=== PATIENT | female | born 1960 | race Caucasian/White ===

== ENCOUNTER 2023-08-16 12:46 | Inpatient (IN) | payer BC, SELFPAY ==
--- NOTE | ~2023-08-16 | XR_ITS ---
XR hip LT 2V w AP pelvis DATE: 08/16/2023 14:41 INDICATION: Fall. Left hip pain TECHNIQUE: AP pelvis. AP and crosstable lateral views of left hip. COMPARISON: None FINDINGS: There is a recent left subcapital femoral neck fracture with minimal displacement. Normal alignment at the pubic symphysis and sacroiliac joints. No pelvic fracture or bone destruction is detected. Normal alignment at both hips. IMPRESSION: Left subcapital femoral neck fracture Reviewed, dictated and finalized at location L.
--- NOTE | ~2023-08-16 | XR_ITS ---
EXAMINATION: XR surgery orthopedic DATE: 08/17/2023 14:26 INDICATION: Left hip pinning for femoral neck fracture TECHNIQUE: 2 fluoroscopic images of the left hip were obtained during procedure performed by Dr. Sosa . Radiologist was not present for the imaging or procedure. The amount of fluoroscopy time used durin g this procedure was 1.0 minutes. COMPARISON: None. FINDINGS: Internal fixation with 3 cannulated lag screws of the previously noted subcapital fracture the proxim al left femur. Fracture remains nondisplaced with lateral impaction and mild valgus angulation. IMPRESSION: 1. Lag screw fixation of an unchanged laterally impacted subcapital fracture of the proximal left fem ur. Reviewed, dictated and finalized at location A. IMPRESSION: 1. Lag screw fixation of an unchanged laterally impacted subcapital fracture of the proximal left femur.
--- NOTE | ~2023-08-16 | XR_ITS ---
XR chest 1V DATE: 08/16/2023 14:42 INDICATION: Left subcapital femoral neck fracture TECHNIQUE: Supine AP chest COMPARISON: None FINDINGS: Normal heart size. No hilar or mediastinal enlargement. No pulmonary infiltrate or consolid ation, pleural effusion or pulmonary vascular congestion or pneumothorax is detected. IMPRESSION: No active cardiopulmonary disease Reviewed, dictated and finalized at location L.
[2023-08-16 12:49] VITALS: BP 141/79; PULSE 81; RESP 18; TEMP 36.8; O2SAT 100
--- NOTE | 2023-08-16 15:15 | ED.LOWEXIN ---
HPI - Extremity Injury (Lower) General Chief Complaint: Extremity Injury, Lower Stated Complaint: LEFT hip pain from ground level fall Time Seen by Provider: 08/16/23 14:20 History of Present Illness HPI Narrative: Patient is a 63-year-old female with a history of hypothyroidism presenting with left hip pain. Patient states that she was on a walk when she tripped on some walnuts that were on the ground she fell on her left hip. States that she had severe pain with ambulation. She states that she struck the side of her face on something but did not lose consciousness. No headache or neck or back pain. States that she has left shoulder pain that was present prior to the fall. Denies further complaints or injuries. Related Data Home Medications Medication Instructions Recorded Confirmed cetirizine 10 mg capsule (Zyrtec) 10 mg PO DAILY PRN Allergies 01/27/23 08/16/23 omega 3-ppd-abr-fish oil 60 mg-90 1 cap PO DAILY 08/11/23 08/16/23 mg-500 mg capsule (Fish Oil) Pepcid 10 mg PO DAILY PRN Indigestion 08/16/23 08/16/23 Allergies Allergy/AdvReac Type Severity Reaction Status Date / Time No Known Allergies Allergy Verified 08/16/23 14:09 Review of Systems Review of Systems: All systems reviewed & are unremarkable except as noted in HPI and below PMFSH Past Medical History Medical History Allergic rhinitis Dysthymia Elevated cholesterol Left chronic serous otitis media Mammogram declined (09/08/18) Nevus of face Vitamin D deficiency Surgical History Surgical History No significant past surgical history Family History Family History Father Family history of coronary artery disease Family history of alcoholism Hypertension Grandparent Breast cancer Mother Age older than 85 years Chronic kidney disease Other Alcoholism Family history of malignant neoplasm of breast in first degree relative Malignant neoplasm of prostate Social History Social History Social History: The patient lives in her own home. Her 3 adult children still live with her. Her 90-year-old mother is also living with her. She is employed as a mortgage processing clerk. She does not have any significant alcohol use history. She is a lifelong nonsmoker. She does not use illicit substances. She exercises quite frequently. She walks at least 2 miles a day. She used to run until she started having left hip discomfort with running. Code status: Full code Surrogate decision maker: Vanessa Coulter (daughter) Smoking status: Never smoker Second hand tobacco smoke exposure: No Alcohol intake: never Substance use: never Substance use type: does not use Lack of Transportation: No Lack of Food: Never True Current Housing: I Have Housing Concerned About Future Housing: No Difficulty Paying Gas/Electric Bills: No Difficulty Paying for Meds: No Currently Unemployed: No Education: Bachelor's Degree Difficulty w/ Childcare or Family Care: No Living arrangements: with family Gender identity (if verbalized by the patient): Female Sexual Orientation (if Verbalized by the Patient): Straight or Heterosexual Spiritual care concerns: No Agree to blood products: Yes Exam Narrative: GENERAL: Well-appearing, no acute distress, pleasant and cooperative HEAD: Normocephalic, superficial skin tear left upper nasal bridge, 4 mm laceration just superior to left eyebrow EYES: PERRLA and EOMI. ENT: Grossly unremarkable NECK: Supple. CHEST: Clear to auscultation. No respiratory distress. HEART: Regular rate and rhythm. Normal peripheral pulses. ABDOMEN: Soft, nontender, nondistended EXTREMITIES: Normal range of motion limited in right hip secondary to pain. No edema. Mild tenderness of left hip with palp
[2023-08-16] MEDS: SODIUM CHLORIDE 0.9% IV 1,000 ML 999 ML IV CONT (15:59)
[2023-08-16] MEDS: KETOROLAC 30 MG/ML VIAL (*BKC) IV PUSH (16:00)
[2023-08-16 16:13] LABS: Basophils Absolute Auto 0.1 K/mm3 (0.0-0.1); Basophils Percent Auto 0.4 % (0.2-1.2); Eosinophils Percent Auto 0.2 % (0-4.4); Hematocrit 40.1 % (37.0-47.0); Hemoglobin 13.3 g/dL (12.0-15.0); Immature Granulocyte Absolute 0.08 K/mm3 (0.00-0.031); Immature Granulocyte Percent A 0.5 % (0-0.5); Lymphocytes Absolute Auto 0.95 K/mm3 (0.9-3.2); Lymphocytes Percent Auto 6.1 % (18.3-44.2); Mean Corpuscular HGB Conc 33.2 g/dl (32-36); Mean Corpuscular Hemoglobin 30.2 pg (26-34); Mean Corpuscular Volume 90.9 fl (80-100); Mean Platelet Volume 8.8 fl (7.4-10.4); Monocytes Absolute Auto 0.6 K/mm3 (0.1-0.6); Monocytes Percent Auto 3.9 % (2.6-8.5); Neutrophils Absolute Auto 13.9 K/mm3 (1.3-6.7); Neutrophils Percent Auto 88.9 % (45.5-73.1); Platelet Count Result 290 k/mm3 (150-375); Red Blood Count 4.41 M/mm3 (4.2-5.4); Red Cell Distribution Width 13.1 % (11.5-14.5); White Blood Count 15.6 K/mm3 (4.5-10.0)
[2023-08-16 16:24] LABS: Anion Gap 8 mmol/L (8-16); Blood Urea Nitrogen 9 mg/dL (7-17); Calcium 9.1 mg/dL (8.4-10.2); Carbon Dioxide 27 mmol/L (22-30); Chloride 101 mmol/L (98-107); Estimated CRCL calculation 57 ml/min; Estimated Glomerular Filt Rate > 60; Glucose 103 mg/dL (65-110); Partial Thromboplastin Time 26.7 SECONDS (22.3-36.8); Potassium 3.6 mmol/L (3.4-5.0); Prothrombin Time 13.8 Seconds (11.1-14.7); Sodium 136 mmol/L (137-145)
[2023-08-16 16:38] VITALS: BP 137/82; PULSE 84; RESP 18; O2SAT 100
[2023-08-16 17:36] VITALS: BP 125/69; PULSE 77; RESP 18; TEMP 36.6; O2SAT 99
--- NOTE | 2023-08-16 19:20 | ADMGEN ---
This patient, Nena Coulter, was admitted to [facility] Surg Room 305-02. Patient/family oriented to hospital policies and general routines including ID bracelet, bed and alarms, visiting hours, pain management, procedures, bathroom and other care routines, personal items, smoking policy, room service/diet, and visiting hours. Information on how to activate the Rapid Response Team has been discussed. Patient/Family are encouraged to report perceived risks to care and to ask questions if they do not understand what they are told or what they should do.
[2023-08-16 22:00] VITALS: BP 115/69; PULSE 77; RESP 12; TEMP 36.9; O2SAT 99
[2023-08-17] VITALS (12 sets, daily range): BP systolic 103–155; BP diastolic 60–94; PULSE 72–102; RESP 14–20; TEMP 36.6–37.8; O2SAT 95–100
--- NOTE | 2023-08-17 01:44 | PM.IMHP ---
H&P: HPI History of Present Illness Date/Time: 08/17/23 03:30 Chief Complaint: Left hip pain Narrative: 63-year-old female with past medical history of hypothyroidism, vitamin-D deficiency and heartburn who presented to the ER after she stepped on a [place] and fell resulting in left hip pain. The patient reports that she usually walks about 2 miles a day. During her lunch break from work she decided to go take her usual walk. The area she was walking in had walnut trees that dropped a lot of hauls. She accidentally stepped on 1 and her legs went out from under her. She fell she actually states that she knocked her glasses to the side this caused a bruise on her left gnosticist and a small laceration to the bridge of her nose. Initially she was more concerned about the laceration to her nose because it was bleeding significantly. But when she tried to get up she could not stand due to left hip pain. The pain was severe when she tried to stand. Currently she is not having pain in LEs she moves. She has never had a fracture or surgery in her life. She is quite anxious as this is her 1st hospitalization besides childbirth. She reports that she is really active and does not have any shortness of breath or issues with chest pain or palpitations. She has not had any lower extremity swelling orthopnea or paroxysmal nocturnal dyspnea. Review of Systems Review of Systems: 12 systems were reviewed with pertinent positives and negatives per HPI. Except as documented in the HPI, all other systems were reviewed and are negative. [facility] Past Medical History Medical History (Updated 08/17/23 @ 01:56 by Marichuy Schrader DO) Allergic rhinitis Dysthymia Elevated cholesterol Left chronic serous otitis media Mammogram declined (09/08/18) Nevus of face Vitamin D deficiency Surgical History Surgical History (Updated 08/17/23 @ 01:50 by Marichuy Schrader DO) No significant past surgical history Family History Family History Father Family history of coronary artery disease Family history of alcoholism Hypertension Grandparent Breast cancer Other Alcoholism Family history of malignant neoplasm of breast in first degree relative Malignant neoplasm of prostate Social History Social History Social History: Code status: Full code Surrogate decision maker: Vanessa Coulter (daughter) Smoking status: Never smoker Second hand tobacco smoke exposure: No Alcohol intake: never Substance use: never Substance use type: does not use Lack of Transportation: No Lack of Food: Never True Current Housing: I Have Housing Concerned About Future Housing: No Difficulty Paying Gas/Electric Bills: No Difficulty Paying for Meds: No Currently Unemployed: No Education: Bachelor's Degree Difficulty w/ Childcare or Family Care: No Living arrangements: with family Gender identity (if verbalized by the patient): Female Sexual Orientation (if Verbalized by the Patient): Straight or Heterosexual Spiritual care concerns: No Agree to blood products: Yes Meds Home Medications and Allergies Home Medications Medication Instructions Recorded Confirmed Type cholecalciferol (vitamin D3) 25 25 mcg PO DAILY #90 caps 08/02/22 08/16/23 Rx mcg (1,000 unit) capsule levothyroxine 75 mcg tablet 75 mcg PO DAILY #90 tabs 10/15/22 08/16/23 Rx cetirizine 10 mg capsule (Zyrtec) 10 mg PO DAILY PRN Allergies 01/27/23 08/16/23 History omega 7-jhh-sgi-fish oil 60 mg-90 1 cap PO DAILY 08/11/23 08/16/23 History mg-500 mg capsule (Fish Oil) Pepcid 10 mg PO DAILY PRN Indigestion 08/16/23 08/16/23 History Allergies Allergy/AdvReac Type Severity Reaction Status Date / Time No Known Allergies Allergy Verified 08/16/23 14:09 Vital Signs Vital Signs - 24 hr 08/16/23 12:49 08/16/23 16:38
--- NOTE | 2023-08-17 01:47 | ECG_ITS ---
Measurements Intervals [place] Rate: 64 P: 77 AK: 174 QRS: 69 QRSD: 102 T: 66 QT: 380 QTc: 393 Interpretive Statements SINUS RHYTHM NO PREVIOUS ECG AVAILABLE FOR COMPARISON Electronically Signed On 08-17-2023 15:43:36 CDT by Francesca Lindquist M.D.
[2023-08-17] MEDS: MORPHINE SULFATE (*CRX) 2 MG/ML INJ IV PUSH (04:19)
[2023-08-17] MEDS: LEVOTHYROXINE SODIUM 75 MCG TABLET PO (06:18)
--- NOTE | 2023-08-17 08:05 | PM.IMPN ---
Progress Note: A&P Assessment and Plan (1) Fracture of femoral neck, left, closed: Qualifiers: Encounter type: initial encounter Qualified Code(s): S72.002A - Fracture of unspecified part of neck of left femur, initial encounter for closed fracture Code(s): S72.002A - Fracture of unspecified part of neck of left femur, initial encounter for closed fracture Status: Acute Assessment and Plan: S/p fall from tripping on a walnut CT shows left femoral neck fracture Ortho consulted Bed rest NPO Rudd placed for immobility and accurate I&O's. morphine 2 mg IVP 2 4 hours for pain Foot pump SCD's (2) Hypothyroidism: Qualifiers: Hypothyroidism type: unspecified Qualified Code(s): E03.9 - Hypothyroidism, unspecified Code(s): E03.9 - Hypothyroidism, unspecified Status: Acute Assessment and Plan: At home on levothyroxine 75 mcg daily check am TSH (3) Closed head injury: Qualifiers: Encounter type: subsequent encounter Qualified Code(s): S09.90XD - Unspecified injury of head, subsequent encounter Code(s): S09.90XA - Unspecified injury of head, initial encounter Status: Acute Assessment and Plan: Left yazidism laceration and brow bruise s/p fall with adequate hemostasis. monitor. patient is not on blood thinners at home. Plan Feeding:NPO until after surgery Analgesia:morhpine Thromboembolic prophylaxis: foot pumps and then anticoagulation per ortho Ulcer prophylaxis: Pepcid prn Glycemic control: N/A Bowel regimen: miralax starting 08/18 Lines: PIV Antibiotics: None at this time Subjective Date/time seen: 08/17/23 08:05 Interval history: HPI obtained from chart, 63-year-old female with past medical history of hypothyroidism, vitamin-D deficiency and heartburn who presented to the ER after she stepped on a [place] and fell resulting in left hip pain.? The patient reports that she usually walks about 2 miles a day.? During her lunch break from work she decided to go take her usual walk.? The area she was walking in had walnut trees that dropped a lot of hauls.? She accidentally stepped on 1 and her legs went out from under her.? She fell she actually states that she knocked her glasses to the side this caused a bruise on her left yazidism and a small laceration to the bridge of her nose.? Initially she was more concerned about the laceration to her nose because it was bleeding significantly.? But when she tried to get up she could not stand due to left hip pain.? The pain was severe when she tried to stand.? Currently she is not having pain in LEs she moves.? She has never had a fracture or surgery in her life.? She is quite anxious as this is her 1st hospitalization besides childbirth.? She reports that she is really active and does not have any shortness of breath or issues with chest pain or palpitations.? She has not had any lower extremity swelling orthopnea or paroxysmal nocturnal dyspnea.? Interval history- 08/17-very pleasant 63-year-old female who is awaiting surgery with Orthopedics today. She has no complaints at this time other than some dull achy pain in her hip. Overall she is just frustrated that she fell and nausea fracture. Discussed likely postoperative course and answered questions as needed. Review of Systems Review of Systems: All systems reviewed & are unremarkable except as noted in HPI and below Exam Narrative: General: well appearing, well developed, well nourished, appears stated age. HEENT: normocephalic, atraumatic. Mucous membranes moist. EOMI, PERRLA, bilateral sclera anicteric, no conjunctival injection. Neck supple without JVD, lymphadenopathy, or bruit. Respiratory: clear to auscultation bilaterally. No rales/rhonic/wheezes. Cardiovascular: Regular rate and rhythm, normal S1-S2 upon auscultation. No murmurs, rubs, or clicks. PMI is nondisplaced, capillary re-fill less than 3 second. Abd
[2023-08-17 08:29] LABS: Basophils Percent Auto 0.5 % (0.2-1.2); Eosinophils Absolute Auto 0.1 K/mm3 (0-0.3); Eosinophils Percent Auto 0.8 % (0-4.4); Hematocrit 38.8 % (37.0-47.0); Hemoglobin 12.4 g/dL (12.0-15.0); Immature Granulocyte Absolute 0.02 K/mm3 (0.00-0.031); Immature Granulocyte Percent A 0.3 % (0-0.5); Lymphocytes Absolute Auto 1.05 K/mm3 (0.9-3.2); Lymphocytes Percent Auto 13.3 % (18.3-44.2); Mean Corpuscular Hemoglobin 29.9 pg (26-34); Mean Corpuscular Volume 93.5 fl (80-100); Monocytes Absolute Auto 0.6 K/mm3 (0.1-0.6); Monocytes Percent Auto 8.1 % (2.6-8.5); Neutrophils Absolute Auto 6.1 K/mm3 (1.3-6.7); Platelet Count Result 252 k/mm3 (150-375); Red Blood Count 4.15 M/mm3 (4.2-5.4); Red Cell Distribution Width 13.4 % (11.5-14.5); White Blood Count 7.9 K/mm3 (4.5-10.0)
[2023-08-17 08:39] LABS: Alanine Aminotransferase 17 U/L (6-35); Albumin Level 3.9 g/dL (3.5-5.1); Alkaline Phosphatase 41 U/L (38-126); Anion Gap 3 mmol/L (8-16); Aspartate Amino Transferase 25 U/L (14-36); Bilirubin,Total 1.2 mg/dL (0.2-1.3); Blood Urea Nitrogen 7 mg/dL (7-17); Calcium 8.4 mg/dL (8.4-10.2); Carbon Dioxide 26 mmol/L (22-30); Chloride 107 mmol/L (98-107); Estimated CRCL calculation 74 ml/min; Estimated Glomerular Filt Rate > 60; Glucose 95 mg/dL (65-110); Potassium 3.9 mmol/L (3.4-5.0); Sodium 136 mmol/L (137-145)
[2023-08-17 08:53] LABS: Prothrombin Time 13.8 Seconds (11.1-14.7)
[2023-08-17 08:54] LABS: Partial Thromboplastin Time 27.8 SECONDS (22.3-36.8)
--- NOTE | 2023-08-17 09:54 | PM.CNOR ---
Assessment and Plan Assessment and plan (1) Fracture of femoral neck, left, closed: Qualifiers: Encounter type: initial encounter Qualified Code(s): S72.002A - Fracture of unspecified part of neck of left femur, initial encounter for closed fracture Code(s): S72.002A - Fracture of unspecified part of neck of left femur, initial encounter for closed fracture Status: Acute Plan 63 year old female with a left subcapital femoral neck fracture after a fall yesterday while she was walking. Plan will be for hip pinning with Dr. Sosa later this afternoon. Nature of the procedure along with risks and complications were discussed in detail with her. She would like to proceed. Post operative protected weight bearing and wound care were also reviewed. She had no further questions. She has been NPO since midnight. History of Present Illness HPI Consult date: 08/17/23 Chief complaint: Left Hip Fx Narrative: 63 year old female admitted for a left subcapital femoral neck fracture after a fall while walking yesterday. She states she tripped and fell on her left side after tripping on some walnuts on the ground. Xrays taken in the ER showed the left subcapital femoral neck fracture. She has no surgical history. No previous reactions to pain medications. She currently lives with her daughter at home and would like go back home at the time of discharge. Review of Systems Constitutional: Constitutional: Reports as per HPI Cardiovascular: Cardiovascular: Reports as per HPI Respiratory: Respiratory: Reports as per HPI Gastrointestinal: Gastrointestinal: Reports as per HPI Musculoskeletal: Musculoskeletal: Reports no additional musculoskeletal complaints and Reports as per HPI Neurologic: Reports system reviewed and no additional complaints, except as documented and Reports as per HPI Psychiatric: Psychiatric: Reports as per HPI Hematologic/Lymphatic: Hematologic/Lymphatic: Reports as per HPI Allergic/Immunologic: Allergic/Immunologic: Reports as per HPI [facility] Past Medical History Medical History Allergic rhinitis Dysthymia Elevated cholesterol Left chronic serous otitis media Mammogram declined (09/08/18) Nevus of face Vitamin D deficiency Surgical History Surgical History No significant past surgical history Family History Family History Father Family history of coronary artery disease Family history of alcoholism Hypertension Grandparent Breast cancer Mother Age older than 85 years Chronic kidney disease Other Alcoholism Family history of malignant neoplasm of breast in first degree relative Malignant neoplasm of prostate Social History Social History Social History: The patient lives in her own home. Her 3 adult children still live with her. Her 90-year-old mother is also living with her. She is employed as a residential mortgage underwriter. She does not have any significant alcohol use history. She is a lifelong nonsmoker. She does not use illicit substances. She exercises quite frequently. She walks at least 2 miles a day. She used to run until she started having left hip discomfort with running. Code status: Full code Surrogate decision maker: Vanessa Coulter (daughter) Smoking status: Never smoker Second hand tobacco smoke exposure: No Alcohol intake: never Substance use: never Substance use type: does not use Lack of Transportation: No Lack of Food: Never True Current Housing: I Have Housing Concerned About Future Housing: No Difficulty Paying Gas/Electric Bills: No Difficulty Paying for Meds: No Currently Unemployed: No Education: Bachelor's Degree Difficulty w/ Childcare or Family Care: No Living arrangements: with family Gender i
[2023-08-17] MEDS: LACTATED RINGERS 1,000 ML 30 ML IV CONT ×2 (12:40→15:04)
--- NOTE | 2023-08-17 12:47 | WPDANESEPPF ---
Anes - Initial Pre Proc Eval Procedure: Operation Date: 08/17/23 13:30 Proposed Procedures p Left Hip Pinning - Donnie Sosa MD Date/Time: 08/17/23 12:47 Surgeon: Magnolia Palma MD Pre Op Diagnosis: Left Hip Fx Patient Data Age: 63 Gender: F Height: 1.68 m Weight: 60.6 kg Last Vital Signs Temp 36.7 C 08/17/23 06:00 Pulse 72 08/17/23 06:00 Resp 14 08/17/23 06:00 BP 136/76 08/17/23 06:00 Pulse Ox 99 08/17/23 06:00 O2 Del Method Room Air 08/17/23 08:00 Allergies Allergy/AdvReac Type Severity Reaction Status Date / Time No Known Allergies Allergy Verified 08/16/23 14:09 Home Medications Medication Instructions Recorded Confirmed Type cholecalciferol (vitamin D3) 25 25 mcg PO DAILY #90 caps 08/02/22 08/16/23 Rx mcg (1,000 unit) capsule levothyroxine 75 mcg tablet 75 mcg PO DAILY #90 tabs 10/15/22 08/16/23 Rx cetirizine 10 mg capsule (Zyrtec) 10 mg PO DAILY PRN Allergies 01/27/23 08/16/23 History omega 9-vxj-kcp-fish oil 60 mg-90 1 cap PO DAILY 08/11/23 08/16/23 History mg-500 mg capsule (Fish Oil) Pepcid 10 mg PO DAILY PRN Indigestion 08/16/23 08/16/23 History Laboratory Tests 08/16/23 08/17/23 15:58 08:22 WBC 15.6 H K/mm3 7.9 K/mm3 (4.5-10.0) (4.5-10.0) RBC 4.41 M/mm3 4.15 L M/mm3 (4.2-5.4) (4.2-5.4) Hgb 13.3 g/dL 12.4 g/dL (12.0-15.0) (12.0-15.0) Hct 40.1 % 38.8 % (37.0-47.0) (37.0-47.0) MCV 90.9 fl 93.5 fl (80-100) (80-100) MCH 30.2 pg 29.9 pg (26-34) (26-34) MCHC 33.2 g/dl 32.0 g/dl (32-36) (32-36) RDW 13.1 % 13.4 % (11.5-14.5) (11.5-14.5) Plt Count 290 k/mm3 252 k/mm3 (150-375) (150-375) MPV 8.8 fl 9.0 fl (7.4-10.4) (7.4-10.4) Immature Gran % (Auto) 0.5 % 0.3 % (0-0.5) (0-0.5) Neut % (Auto) 88.9 H % 77.0 H % (45.5-73.1) (45.5-73.1) Lymph % (Auto) 6.1 L % 13.3 L % (18.3-44.2) (18.3-44.2) [place] % (Auto) 3.9 % 8.1 % (2.6-8.5) (2.6-8.5) Eos % (Auto) 0.2 % 0.8 % (0-4.4) (0-4.4) Baso % (Auto) 0.4 % 0.5 % (0.2-1.2) (0.2-1.2) Lymph # (Auto) 0.95 K/mm3 1.05 K/mm3 (0.9-3.2) (0.9-3.2) [place] # (Auto) 0.6 K/mm3 0.6 K/mm3 (0.1-0.6) (0.1-0.6) Eos # (Auto) 0.0 K/mm3 0.1 K/mm3 (0-0.3) (0-0.3) Baso # (Auto) 0.1 K/mm3 0.0 K/mm3 (0.0-0.1) (0.0-0.1) Abs Immat Gran (auto) 0.08 H K/mm3 0.02 K/mm3 (0.00-0.031) (0.00-0.031) Absolute Neuts (auto) 13.9 H K/mm3 6.1 K/mm3 (1.3-6.7) (1.3-6.7) Absolute Nucleated RBC 0.0 K/mm3 0.0 K/mm3 (0.0-0.012) (0.0-0.012) Nucleated RBC % 0.0 % 0.0 % (0.0-0.2) (0.0-0.2) PT 13.8 Seconds 13.8 Seconds (11.1-14.7) (11.1-14.7) INR 1.0 1.0 APTT 26.7 SECONDS 27.8 SECONDS (22.3-36.8) (22.3-36.8) Sodium 136 L mmol/L 136 L mmol/L (137-145) (137-145) Potassium 3.6 mmol/L 3.9 mmol/L (3.4-5.0) (3.4-5.0) Chloride 101 mmol/L 107 mmol/L (98-107) (98-107) Carbon Dioxide 27 mmol/L 26 mmol/L (22-30) (22-30) Anion Gap 8 mmol/L 3 L mmol/L (8-16) (8-16) BUN 9 mg/dL 7 mg/dL (7-17) (7-17) Creatinine 0.80 mg/dL 0.60 L mg/dL (0.7-1.0) (0.7-1.0) Estim Creat Clear Calc 57 ml/min 74 ml/min Estimated GFR > 60 > 60 (59 - ) (59 - ) Glucose 103 mg/dL 95 mg/dL (65-110) (65-110) Calcium 9.1 mg/dL 8.4 mg/dL (8.4-10.2) (8.4-10.2) Total Bilirubin 1.2 mg/dL (0.2-1.3) AST 25 U/L (14-36) ALT 17 U/L (6-35) Alkaline Phosphatase 41 U/L (38-126) Total Protein 7.0 g/dL (6.3-8.2) Albumin 3.9 g/dL (3.5-5.1) Patient hx anesthesia problems: none Family hx anesthesia problems: none Results Review: All pre-operative results and documents have been reviewed as part of the pre-operative evaluation. PMFSH Past Medical History Medical History Allergic rhinitis D
--- NOTE | 2023-08-17 12:50 | WPDHPUPDATE1 ---
History and Physical Update Update Date/Time: 08/17/23 12:50 History and Physical has been reviewed, including an updated exam of the patient. There are NO changes in the patient's condition. Risks, benefits, and alternatives have been discussed and questions answered. Patient agrees to proceed with procedure.
[2023-08-17] MEDS: ceFAZolin 2 GM/D5W 50 ML 2 GM/50 ML BAG IVPB ×2 (13:21→22:13)
[2023-08-17] MEDS: BUPIVACAINE/EPINEPHRINE 0.5% 50 ML VIAL 30 ML INFILTRATE (13:59)
--- NOTE | 2023-08-17 14:51 | W.PM.PROC2 ---
Procedure Note - Detailed Date of Procedure 08/17/23 Pre-op Diagnosis Left subcapital femoral neck fracture Post-op Diagnosis Same Procedure Performed Pinning in-situ left femoral neck fracture Surgeon Donnie Sosa MD [employer] [place] Anesthesia General Description of Procedure The patient was identified and proper site identified. She was taken to the operating room and after general anesthetic induction intubation, transferred over to the fracture table positioning her supine take care to pad her torso and extremities. The position of the fracture was assessed fluoroscopically and noted to be in unchanged impacted position. The left hip and thigh was prepped and draped in the usual sterile fashion. Several cc of 0.5% Marcaine and epinephrine solution was injected the subcutaneous tissue in the area of the incision. Longitudinal incision was made over the lateral aspect of the proximal femur. Subcutaneous tissue sharply dissected down to the ID band which was divided line with the incision. Through this incision three guide pins were placed under fluoroscopic visualization. Over the guide pins three parallel 7.0 cannulated screws were passed across the fracture site in the guide pins removed. This was assessed fluoroscopically in the AP and lateral views and noted to be satisfactory. Wound was irrigated with sterile saline. ID band was reapproximated with 0 Vicryl as was the deeper layers of the subQ. Skin closed with three 0 V lock and sobia. Sterile dressing was applied. She tolerated the procedure well. She was awakened, extubated, transferred to a bed and taken to recovery area in stable condition. There were no known intraoperative complications. Estimated blood loss negative. She received perioperative antibiotics. Estimated Blood Loss 20 Drains No Packing No Pathology None sent Complications No immediate complications Condition Stable Disposition PACU [facility] Billing Surgery - Charge Forward: Surgery Billing ([id number])
[2023-08-17] MEDS: SODIUM CHLORIDE 0.9% IV 1,000 ML 125 ML IV CONT (16:00)
[2023-08-17] MEDS: HYDROcodone/acetaminophen (*CRX) 7.5-325 MG TABLET 2 TAB PO (16:50)
[2023-08-17] MEDS: SENNA/DOCUSATE SODIUM TABLET 2 TAB PO (16:50)
[2023-08-17] MEDS: ASPIRIN 325 MG ENTERIC TABLET PO (20:45)
[2023-08-17] MEDS: FAMOTIDINE 20 MG TABLET PO (20:45)
[2023-08-17] MEDS: HYDROcodone/acetaminophen (*CRX) 5-325 MG TABLET 1 TAB PO (22:46)
[2023-08-18 01:08] VITALS: BP 115/66; PULSE 62; RESP 20; TEMP 37; O2SAT 99
[2023-08-18 05:08] VITALS: BP 115/66; PULSE 62; RESP 20; TEMP 37; O2SAT 99
[2023-08-18] MEDS: ceFAZolin 2 GM/D5W 50 ML 2 GM/50 ML BAG IVPB ×2 (05:31→14:09)
[2023-08-18] MEDS: HYDROcodone/acetaminophen (*CRX) 5-325 MG TABLET 1 TAB PO ×2 (05:33→20:17)
[2023-08-18] MEDS: LEVOTHYROXINE SODIUM 75 MCG TABLET PO (05:33)
[2023-08-18] MEDS: LORATADINE 10 MG TABLET PO (06:13)
[2023-08-18 06:31] LABS: Basophils Percent Auto 0.4 % (0.2-1.2); Hematocrit 37.2 % (37.0-47.0); Hemoglobin 11.8 g/dL (12.0-15.0); Immature Granulocyte Absolute 0.04 K/mm3 (0.00-0.031); Immature Granulocyte Percent A 0.4 % (0-0.5); Lymphocytes Absolute Auto 0.78 K/mm3 (0.9-3.2); Lymphocytes Percent Auto 7.6 % (18.3-44.2); Mean Corpuscular HGB Conc 31.7 g/dl (32-36); Mean Corpuscular Hemoglobin 29.9 pg (26-34); Mean Corpuscular Volume 94.4 fl (80-100); Mean Platelet Volume 9.4 fl (7.4-10.4); Monocytes Absolute Auto 0.7 K/mm3 (0.1-0.6); Monocytes Percent Auto 6.7 % (2.6-8.5); Neutrophils Absolute Auto 8.7 K/mm3 (1.3-6.7); Neutrophils Percent Auto 84.9 % (45.5-73.1); Platelet Count Result 250 k/mm3 (150-375); Red Blood Count 3.94 M/mm3 (4.2-5.4); Red Cell Distribution Width 13.2 % (11.5-14.5); White Blood Count 10.3 K/mm3 (4.5-10.0)
[2023-08-18 06:45] LABS: Alanine Aminotransferase 15 U/L (6-35); Albumin Level 3.6 g/dL (3.5-5.1); Alkaline Phosphatase 43 U/L (38-126); Anion Gap 4 mmol/L (8-16); Aspartate Amino Transferase 23 U/L (14-36); Bilirubin,Total 0.7 mg/dL (0.2-1.3); Blood Urea Nitrogen 8 mg/dL (7-17); Calcium 8.3 mg/dL (8.4-10.2); Carbon Dioxide 25 mmol/L (22-30); Chloride 104 mmol/L (98-107); Estimated CRCL calculation 74 ml/min; Estimated Glomerular Filt Rate > 60; Glucose 106 mg/dL (65-110); Phosphorus 3.1 mg/dL (2.5-4.5); Sodium 133 mmol/L (137-145)
--- NOTE | 2023-08-18 07:49 | PM.IMPN ---
Progress Note: A&P Assessment and Plan (1) Fracture of femoral neck, left, closed: Qualifiers: Encounter type: initial encounter Qualified Code(s): S72.002A - Fracture of unspecified part of neck of left femur, initial encounter for closed fracture Code(s): S72.002A - Fracture of unspecified part of neck of left femur, initial encounter for closed fracture Status: Acute Assessment and Plan: S/p fall from tripping on a walnut CT shows left femoral neck fracture Ortho consulted Toe touch weight bearing with PT/OT consult regular diet morphine 2 mg IVP 2 4 hours for breakthrough, norco prn for pain control Zofran for nausea Foot pump SCD's and ASA 325 mg PO BID Needs DEXA scan as an outpatient (2) Hypothyroidism: Qualifiers: Hypothyroidism type: unspecified Qualified Code(s): E03.9 - Hypothyroidism, unspecified Code(s): E03.9 - Hypothyroidism, unspecified Status: Acute Assessment and Plan: At home on levothyroxine 75 mcg daily check am TSH TSH 2.410 normal (3) Closed head injury: Qualifiers: Encounter type: subsequent encounter Qualified Code(s): S09.90XD - Unspecified injury of head, subsequent encounter Code(s): S09.90XA - Unspecified injury of head, initial encounter Status: Acute Assessment and Plan: Left mormonism laceration and brow bruise s/p fall with adequate hemostasis s/p dermabond. monitor. patient is not on blood thinners at home. Plan Feeding:General diet Analgesia:morphine Thromboembolic prophylaxis: foot pumps and ASA 325 mg PO BID Ulcer prophylaxis: Pepcid prn Glycemic control: N/A Bowel regimen: miralax starting 08/18 and senna BID Lines: PIV Antibiotics: Ancef completed for SCIP Anticipate home tomorrow Subjective Date/time seen: 08/18/23 07:49 Interval history: HPI obtained from chart, 63-year-old female with past medical history of hypothyroidism, vitamin-D deficiency and heartburn who presented to the ER after she stepped on a [place] and fell resulting in left hip pain.? The patient reports that she usually walks about 2 miles a day.? During her lunch break from work she decided to go take her usual walk.? The area she was walking in had walnut trees that dropped a lot of hauls.? She accidentally stepped on 1 and her legs went out from under her.? She fell she actually states that she knocked her glasses to the side this caused a bruise on her left mormonism and a small laceration to the bridge of her nose.? Initially she was more concerned about the laceration to her nose because it was bleeding significantly.? But when she tried to get up she could not stand due to left hip pain.? The pain was severe when she tried to stand.? Currently she is not having pain in LEs she moves.? She has never had a fracture or surgery in her life.? She is quite anxious as this is her 1st hospitalization besides childbirth.? She reports that she is really active and does not have any shortness of breath or issues with chest pain or palpitations.? She has not had any lower extremity swelling orthopnea or paroxysmal nocturnal dyspnea.? Interval history- 08/17-very pleasant 63-year-old female who is awaiting surgery with Orthopedics today. She has no complaints at this time other than some dull achy pain in her hip. Overall she is just frustrated that she fell and nausea fracture. Discussed likely postoperative course and answered questions as needed. 08/18-POD 1 from left femoral neck pinning. She is seen this morning after working with therapy. She is feeling fairly well today however she did experience some nausea with getting up for the 1st time. Her Rudd was removed this morning. She says that her pain is well controlled with her current pain regimen. Review of Systems Review of Systems: All systems reviewed & are unremarkable except as noted in HPI and below Exam Narrative: General: glenn
--- NOTE | 2023-08-18 09:05 | PM.PNORT ---
Progress Note: A&P Assessment and Plan (1) Status post-operative repair of closed fracture of left hip: Code(s): Z98.890 - Other specified postprocedural states; Z87.81 - Personal history of (healed) traumatic fracture Status: Acute (2) Fracture of femoral neck, left, closed: Qualifiers: Encounter type: initial encounter Qualified Code(s): S72.002A - Fracture of unspecified part of neck of left femur, initial encounter for closed fracture Code(s): S72.002A - Fracture of unspecified part of neck of left femur, initial encounter for closed fracture Status: Acute Plan 63 year old female post op day [address] Dr[address] Sosa. Overall doing very well. Will start to mobilize with therapy today. Remain toe touch weight bearing LLE with a walker. Likely be able to discharge to home tomorrow. Home health would be reasonable to oversee her at home for a couple of weeks, making sure she is maintaining her weight bearing while at home. Subjective Subjective Date/Time Seen: 08/18/23 09:05 Interval history: 63 year old female post op day 1 after left hip pinning in situ with Dr. Sosa. Over feeling well this morning. She did have a bit of nausea this morning but states it has calmed down. No issues at the incision site. Pain is controlled. She is looking forward to mobilization with therapy today. Review of Systems Constitutional: Constitutional: Denies chills, Denies fever(s), Denies night sweats and Denies weakness Eyes: Eyes: Denies change in vision ENT: Reports Normal hearing present and Denies dizziness Cardiovascular: Cardiovascular: Denies chest pain, Denies lightheadedness and Denies dyspnea on exertion Respiratory: Respiratory: Denies dyspnea on exertion Gastrointestinal: Gastrointestinal: Denies abdominal pain Genitourinary: Genitourinary: Denies dysuria Musculoskeletal: Musculoskeletal: Reports no additional musculoskeletal complaints and Reports as per HPI Integumentary/Breasts: Skin/Breast: Denies lesions and Denies wounds Neurologic: Reports Normal hearing present, Denies confusion, Denies dizziness and Denies weakness Psychiatric: Psychiatric: Denies confusion and Denies paranoia Hematologic/Lymphatic: Hematologic/Lymphatic: Denies easy bleeding and Denies easy bruising Exam Const: General: cooperative, healthy appearing, no acute distress and average body habitus Nutritional Appearance: average body habitus Orientation/consciousness: patient oriented x3 Limitations: no limitations HENMT: Head: normocephalic Ears: hearing grossly normal bilaterally Mouth: Yes moist mucous membranes Teeth and gingiva: fair dentition Eyes: General: appearance normal, both eyes and all related structures Alignment and Position: alignment normal Pupils: Equal, round and reactive pupils present Neck: Neck: normal visual inspection Chest: Chest palpation & inspection: normal inspection of the chest Resp: Effort & Inspection: normal respiratory effort and able to speak in complete sentences Cardio: Jugular venous distension: no JVD Peripheral pulses: Peripheral pulses 2+ throughout GI: Inspection: normal to inspection and non-distended GI Palp: Yes Soft to palpation and No Tenderness to palpation present (GI) Skin: General skin exam: no rashes or lesions noted and ecchymosis (left lateral hip) Neuro: General: patient oriented x3 Cranial nerves: Yes Equal, round and reactive pupils present Speech: normal speech Sensory Exam: normal sensation Extrem: Other: Exam of the left hip demonstrates a clean and dry surgical dressing. Swelling of the left hip and LLE consistent with recent hip pinning. Calf negative. Neurovascular status LLE intact. Psych: Appearance: grossly normal Mental Status: mental status grossly normal Radiology Reports: Comments: EXAMINATION: XR surgery orthopedic DATE: 08/17/2023 14:26 INDICATION: Left hip pinning for femoral neck fracture TECH
[2023-08-18 09:08] VITALS: BP 117/60; PULSE 86; RESP 16; TEMP 36.7; O2SAT 98
[2023-08-18] MEDS: CHOLECALCIFEROL 1,000 UNITS TABLET 1000 UNITS PO (09:10)
[2023-08-18] MEDS: OMEGA 3 POLYUNSAT FATTY ACIDS 1 GM CAP PO (09:10)
[2023-08-18] MEDS: FAMOTIDINE 20 MG TABLET PO ×2 (09:10→20:23)
[2023-08-18] MEDS: SENNA/DOCUSATE SODIUM TABLET 2 TAB PO ×2 (09:10→16:55)
[2023-08-18] MEDS: ASPIRIN 325 MG ENTERIC TABLET PO ×2 (09:10→20:17)
[2023-08-18] MEDS: polyethylene glycoL 3350 17 GM POWD.PACK PO (09:11)
[2023-08-18 13:08] VITALS: BP 132/84; PULSE 75; RESP 16; TEMP 36.8; O2SAT 100
--- NOTE | 2023-08-18 13:58 | P.PNAN_ITS ---
Anes - Prog Note Post-Op Date/Time: 08/18/23 13:58 Cardiovascular status: normal Respiratory status: normal Airway patency: baseline Mental status: baseline Post-Op hydration status: normal Vital Signs: Last Vital Signs Temp 36.8 C 08/18/23 13:08 Pulse 75 08/18/23 13:08 Resp 16 08/18/23 13:08 BP 132/84 08/18/23 13:08 Pulse Ox 100 08/18/23 13:08 O2 Del Method Room Air 08/18/23 10:05 O2 Flow Rate 10 08/17/23 14:45 Pain Score (VAS): 12/24 I/O: Intake & Output 08/17/23 08/18/23 08/18/23 23:59 07:59 15:59 Intake Total 840 150 360 Output Total 150 Balance 690 150 360 Laboratory Tests 08/18/23 05:45 08/18/23 05:45 08/18/23 05:45 WBC 10.3 H RBC 3.94 L Hgb 11.8 L Hct 37.2 MCV 94.4 MCH 29.9 MCHC 31.7 L RDW 13.2 Plt Count 250 MPV 9.4 Immature Gran % (Auto) 0.4 Neut % (Auto) 84.9 H Lymph % (Auto) 7.6 L Canadian % (Auto) 6.7 Eos % (Auto) 0.0 Baso % (Auto) 0.4 Lymph # (Auto) 0.78 L Canadian # (Auto) 0.7 H Eos # (Auto) 0.0 Baso # (Auto) 0.0 Abs Immat Gran (auto) 0.04 H Absolute Neuts (auto) 8.7 H Absolute Nucleated RBC 0.0 Nucleated RBC % 0.0 Sodium 133 L Potassium 4.0 Chloride 104 Carbon Dioxide 25 Anion Gap 4 L BUN 8 Creatinine 0.60 L Estim Creat Clear Calc 74 Estimated GFR > 60 Glucose 106 Calcium 8.3 L Phosphorus 3.1 Magnesium 2.0 Total Bilirubin 0.7 AST 23 ALT 15 Alkaline Phosphatase 43 Total Protein 6.0 L Albumin 3.6 TSH 2.410 Post-procedural complaints: none Patient Feedback: Patient satisfied with anesthetic care.
[2023-08-18 21:45] VITALS: BP 139/64; PULSE 64; RESP 14; TEMP 37; O2SAT 100
[2023-08-19] MEDS: HYDROcodone/acetaminophen (*CRX) 5-325 MG TABLET 1 TAB PO (05:27)
[2023-08-19] MEDS: LEVOTHYROXINE SODIUM 75 MCG TABLET PO (05:27)
[2023-08-19] MEDS: LORATADINE 10 MG TABLET PO ×2 (05:46→05:50)
[2023-08-19 06:00] VITALS: BP 128/78; PULSE 77; RESP 18; TEMP 37.1; O2SAT 97
[2023-08-19 06:49] LABS: Hematocrit 35.4 % (37.0-47.0); Hemoglobin 11.7 g/dL (12.0-15.0); Mean Corpuscular HGB Conc 33.1 g/dl (32-36); Mean Corpuscular Hemoglobin 30.5 pg (26-34); Mean Corpuscular Volume 92.4 fl (80-100); Mean Platelet Volume 9.3 fl (7.4-10.4); Platelet Count Result 240 k/mm3 (150-375); Red Blood Count 3.83 M/mm3 (4.2-5.4); Red Cell Distribution Width 13.2 % (11.5-14.5); White Blood Count 6.6 K/mm3 (4.5-10.0)
[2023-08-19 06:53] LABS: Anion Gap 5 mmol/L (8-16); Blood Urea Nitrogen 9 mg/dL (7-17); Calcium 8.4 mg/dL (8.4-10.2); Carbon Dioxide 29 mmol/L (22-30); Chloride 104 mmol/L (98-107); Estimated CRCL calculation 74 ml/min; Estimated Glomerular Filt Rate > 60; Glucose 94 mg/dL (65-110); Potassium 3.8 mmol/L (3.4-5.0); Sodium 138 mmol/L (137-145)
--- NOTE | 2023-08-19 07:56 | PM.PNORT ---
Progress Note: A&P Assessment and Plan (1) Status post-operative repair of closed fracture of left hip: Code(s): Z98.890 - Other specified postprocedural states; Z87.81 - Personal history of (healed) traumatic fracture Status: Acute (2) Fracture of femoral neck, left, closed: Qualifiers: Encounter type: initial encounter Qualified Code(s): S72.002A - Fracture of unspecified part of neck of left femur, initial encounter for closed fracture Code(s): S72.002A - Fracture of unspecified part of neck of left femur, initial encounter for closed fracture Status: Acute Plan 63 year old female post op day 2 [address] hip pinning with Dr. Sosa. Overall doing very well. Continue to mobilize with therapy today. Remain toe touch weight bearing LLE with a walker. Plan for discharge home later today. Home health for 2 times a week for a couple of weeks will be reasonable to make sure she is able to maintain her weight-bearing status while at home. She also has help at home with her family. We will plan to see her in 2 weeks for staple removal. Aspirin 325 mg daily x 8 weeks for DVT prophylaxis, she will get this [id number]. Hydrocodone/acetaminophen for pain but I did inform her to switch to Arthritis Strength Tylenol once she feels that the pain is better controlled, likely in a couple of days. The Mepilex dressing is waterproof so she can shower while this is on. We will send her home with a few extra dressings in order to change this before her sutures are removed. Subjective Subjective Date/Time Seen: 08/19/23 07:56 Interval history: 63-year-old female postop day 2 after left hip pinning for a subcapital hip fracture. Overall doing very well. Pain is well controlled. She was able to work with therapy yesterday and maintained her weight-bearing status well. She does have a bit of muscle soreness this morning but nothing out of the ordinary. Review of Systems Constitutional: Constitutional: Denies chills, Denies fever(s), Denies night sweats and Denies weakness Eyes: Eyes: Denies change in vision ENT: Reports Normal hearing present and Denies dizziness Cardiovascular: Cardiovascular: Denies chest pain, Denies lightheadedness and Denies dyspnea on exertion Respiratory: Respiratory: Denies dyspnea on exertion Gastrointestinal: Gastrointestinal: Denies abdominal pain Genitourinary: Genitourinary: Denies dysuria Musculoskeletal: Musculoskeletal: Reports no additional musculoskeletal complaints and Reports as per HPI Integumentary/Breasts: Skin/Breast: Denies lesions and Denies wounds Neurologic: Reports Normal hearing present, Denies confusion, Denies dizziness and Denies weakness Psychiatric: Psychiatric: Denies confusion and Denies paranoia Hematologic/Lymphatic: Hematologic/Lymphatic: Denies easy bleeding and Denies easy bruising Exam Const: General: cooperative, healthy appearing, no acute distress and average body habitus Nutritional Appearance: average body habitus Orientation/consciousness: patient oriented x3 Limitations: no limitations HENMT: Head: normocephalic Ears: hearing grossly normal bilaterally Mouth: Yes moist mucous membranes Teeth and gingiva: fair dentition Eyes: General: appearance normal, both eyes and all related structures Alignment and Position: alignment normal Neck: Neck: normal visual inspection Chest: Chest palpation & inspection: normal inspection of the chest Resp: Effort & Inspection: normal respiratory effort and able to speak in complete sentences Cardio: Jugular venous distension: no JVD Peripheral pulses: Peripheral pulses 2+ throughout GI: Inspection: normal to inspection and non-distended GI Palp: Yes Soft to palpation and No Tenderness to palpation present (GI) Skin: General skin exam: no rashes or lesions noted and ecchymosis (left lateral hip) Neuro: General: patient oriented x3 Cranial nerves: Yes Equal, round and reactive pupils p
[2023-08-19 08:20] VITALS: O2SAT 99
[2023-08-19] MEDS: SENNA/DOCUSATE SODIUM TABLET 2 TAB PO (08:25)
[2023-08-19] MEDS: FAMOTIDINE 20 MG TABLET PO (08:25)
[2023-08-19] MEDS: CHOLECALCIFEROL 1,000 UNITS TABLET 1000 UNITS PO (08:25)
[2023-08-19] MEDS: OMEGA 3 POLYUNSAT FATTY ACIDS 1 GM CAP PO (08:25)
[2023-08-19] MEDS: ASPIRIN 325 MG ENTERIC TABLET PO (08:25)
[2023-08-19] MEDS: polyethylene glycoL 3350 17 GM POWD.PACK PO (08:26)
--- NOTE | 2023-08-19 11:53 | PM.DS ---
DS: Admitting Diagnosis Discharge Date 08/19 Admitting Diagnosis fall, femur fracture DS: Discharge Diagnosis Discharge Diagnosis (1) Fracture of femoral neck, left, closed: Qualifiers: Encounter type: initial encounter Qualified Code(s): S72.002A - Fracture of unspecified part of neck of left femur, initial encounter for closed fracture Code(s): S72.002A - Fracture of unspecified part of neck of left femur, initial encounter for closed fracture Status: Acute Assessment and Plan: S/p fall from tripping on a [place] CT shows left femoral neck fracture Ortho consulted Toe touch weight bearing with PT/OT consult regular diet morphine 2 mg IVP 2 4 hours for breakthrough, norco prn for pain control Zofran for nausea Foot pump SCD's and ASA 325 mg PO BID Needs DEXA scan as an outpatient (2) Hypothyroidism: Qualifiers: Hypothyroidism type: unspecified Qualified Code(s): E03.9 - Hypothyroidism, unspecified Code(s): E03.9 - Hypothyroidism, unspecified Status: Acute Assessment and Plan: At home on levothyroxine 75 mcg daily check am TSH TSH 2.410 normal (3) Closed head injury: Qualifiers: Encounter type: subsequent encounter Qualified Code(s): S09.90XD - Unspecified injury of head, subsequent encounter Code(s): S09.90XA - Unspecified injury of head, initial encounter Status: Acute Assessment and Plan: Left jainism laceration and brow bruise s/p fall with adequate hemostasis s/p dermabond. monitor. patient is not on blood thinners at home. Plan Feeding:General diet Analgesia:morphine Thromboembolic prophylaxis: foot pumps and ASA 325 mg PO BID Ulcer prophylaxis: Pepcid prn Glycemic control: N/A Bowel regimen: miralax starting 08/18 and senna BID Lines: PIV Antibiotics: Ancef completed for SCIP Anticipate home tomorrow DS: Summary Hospital Course Hospital Course: HPI obtained from chart, 63-year-old female with past medical history of hypothyroidism, vitamin-D deficiency and heartburn who presented to the ER after she stepped on a [place] and fell resulting in left hip pain.? The patient reports that she usually walks about 2 miles a day.? During her lunch break from work she decided to go take her usual walk.? The area she was walking in had walnut trees that dropped a lot of hauls.? She accidentally stepped on 1 and her legs went out from under her.? She fell she actually states that she knocked her glasses to the side this caused a bruise on her left jainism and a small laceration to the bridge of her nose.? Initially she was more concerned about the laceration to her nose because it was bleeding significantly.? But when she tried to get up she could not stand due to left hip pain.? The pain was severe when she tried to stand.? Currently she is not having pain in LEs she moves.? She has never had a fracture or surgery in her life.? She is quite anxious as this is her 1st hospitalization besides childbirth.? She reports that she is really active and does not have any shortness of breath or issues with chest pain or palpitations.? She has not had any lower extremity swelling orthopnea or paroxysmal nocturnal dyspnea.? Interval history- 08/17-very pleasant 63-year-old female who is awaiting surgery with Orthopedics today.? She has no complaints at this time other than some dull achy pain in her hip.? Overall she is just frustrated that she fell and nausea fracture.? Discussed likely postoperative course and answered questions as needed. 08/18-POD 1 from left femoral neck pinning.? She is seen this morning after working with therapy.? She is feeling fairly well today however she did experience some nausea with getting up for the 1st time.? Her Rudd was removed this morning.? She says that her pain is well controlled with her current pain regimen. 08/19-Orthopedics is fine with discharge today. Patient continues to do we
== END 2023-08-19 12:35 | disposition home health service (06) | DRG 482 ==
LOC: ANHED 14:53 → ANH3MEDSUR 17:36
PROVIDERS: Orthopaedic Surgery; Admitting Provider Family Medicine; Emergency Provider Emergency Medicine; PCP Family Medicine; Visit Provider Nurse Practitioner Acute Care
PROC: 0QH734Z Insertion of Internal Fixation Device into Left Upper Femur, Percutaneous Approach (ICD-10-PCS; principal; 2023-08-17 13:30)
DX: S72.002A Fracture of unspecified part of neck of left femur, initial encounter for closed fracture (principal); S01.81XA Laceration without foreign body of other part of head, initial encounter; S01.21XA Laceration without foreign body of nose, initial encounter; W01.0XXA Fall on same level from slipping, tripping and stumbling without subsequent striking against object, initial encounter; E03.9 Hypothyroidism, unspecified; E55.9 Vitamin D deficiency, unspecified
CPT/HCPCS: 36415; 71045; 73502; 80048; 80053; 83735; 84100; 84443; 85025; 85027; 85610; 85730; 93005; 97110; 97116; 97161; 97165; 97530; 97535; 99199; A9270; C1713; J0690; J1100; J1170; J1885; J2250; J2270; J2371; J2405; J2704; J3010; J7030; J7120

== ENCOUNTER 2023-10-31 12:05 | Outpatient (CLI) | payer BC, SELFPAY ==
--- NOTE | ~2023-10-31 | XR_ITS ---
EXAMINATION: XR hip LT min 2V INDICATION: Left hip pain TECHNIQUE: Two views of the left hip are obtained. COMPARISON: 10/12/2023 FINDINGS: There is a subcapital fracture of the left femoral neck stabilized by three lag screws. Ali gnment is unchanged. No definite calcified callus is identified. There is mild osteoarthritis of the hip. IMPRESSION: 1. Internally stabilized subcapital fracture of the left femoral neck without significant change. Reviewed, dictated and finalized at location B. TECHNICIAN IMPRESSION: 1. Internally stabilized subcapital fracture of the left femoral neck without s ignificant change.
== END 2023-10-31 12:06 | disposition home or self-care (01) ==
PROVIDERS: PCP Family Medicine; Visit Provider Orthopaedic Surgery
DX: Z98.890 Other specified postprocedural states (principal); Z87.81 Personal history of (healed) traumatic fracture
CPT/HCPCS: 73502